=== PATIENT | female | born 1965 | race American Indian/Alaskan Native ===

== ENCOUNTER 2021-06-13 16:58 | Observation (INO) | payer MEDICARE ==
--- NOTE | 2021-06-13 17:45 | Emergency Department Report ---
Blank Doc - Documentation Documentation: Patient is 55 years old female with history of chronic anemia. Patient was sent from Dr Stahl, for evaluation of anemia. Unable to send a lab stating that patient hemoglobin is 4.5. I order CBC, CMP, PT and PTT and type and screen.
[2021-06-13 18:27] LABS: Basophils # (Auto) 0.1 K/mm3 (0.0-0.1); Basophils % (Auto) 1.2 % (0.0-1.8); Eosinophils % (Auto) 0.4 % (0.0-4.3); Lymphocytes # (Auto) 2.9 K/mm3 (1.2-5.4); Lymphocytes % (Auto) 35.8 % (13.4-35.0); Mean Corpuscular HGB Conc 29 % (30-34); Monocytes # (Auto) 0.5 K/mm3 (0.0-0.8); Monocytes % (Auto) 6.6 % (0.0-7.3); Platelet Count 301 K/mm3 (140-440); Red Blood Count 2.72 M/mm3 (3.65-5.03)
[2021-06-13 18:30] LABS: Mean Corpuscular Volume 56 fl (79-97)
[2021-06-13 18:32] LABS: Hematocrit 15.2 % (30.3-42.9); Hemoglobin 4.4 gm/dl (10.1-14.3)
[2021-06-13 18:37] LABS: Albumin 4.3 g/dL (3.9-5); BUN/Creatinine Ratio 17; Blood Urea Nitrogen 15 mg/dL (7-17); Hemolysis Index 0
[2021-06-13 18:39] LABS: Alanine Aminotransferase < 5 units/L (7-56); INR 0.95 (0.87-1.13)
[2021-06-13 18:40] LABS: Partial Thromboplastin Time 24.5 Sec. (24.2-36.6)
[2021-06-13] MEDS ORDERED: SODIUM CHLORIDE 0.9% 500 ML 500 ML IV ONE (18:47)
--- NOTE | 2021-06-13 22:10 | Emergency Department Report ---
ED General Adult HPI - General Chief complaint: Medical Clearance Stated complaint: SENT BY FOR BLOOD TRANSFUSION Time Seen by Provider: 06/13/21 17:43 Source: patient Mode of arrival: Ambulatory Limitations: No Limitations - History of Present Illness Initial comments: Patient is 55 years old female with no significant past medical history except for chronic iron deficiency anemia for which she is getting iron transfusion by her primary care physician. Patient sent to the emergency room by her primary care physician for blood transfusion. Patient found to have a hemoglobin of 4.4. Patient stated that she had history of blood transfusion 2 months ago at [facility]. Patient denied any hematemesis, melena, hematochezia. She also denied any hemoptysis or hematuria. Patient is not taking any blood thinner medicine. Patient stated that she is taking ibuprofen almost like every other day for her leg cramps. Patient stated that she has been scheduled for a visit with a securities trader in the next few days. Patient today reported shortness of breath dizziness however she denied any chest pain or abdominal pain. - Related Data Allergies Allergy/AdvReac Type Severity Reaction Status Date / Time No Known Allergies Allergy Verified 06/13/21 18:44 ED Review of Systems ROS: Stated complaint: SENT BY FOR BLOOD TRANSFUSION Other details as noted in HPI Comment: All other systems reviewed and negative Constitutional: denies: chills, fever Respiratory: SOB with exertion. denies: cough Cardiovascular: palpitations. denies: chest pain Gastrointestinal: denies: abdominal pain, nausea, vomiting, diarrhea, co nstipation, hematemesis, melena, hematochezia Musculoskeletal: denies: back pain Neurological: denies: headache, weakness, numbness, paresthesias, confusion ED Past Medical Hx - Past Medical History Previous Medical History?: No - Surgical History Past Surgical History?: No - Social History Smoking Status: Current Every Day Smoker ED Physical Exam - General Limitations: No Limitations General appearance: alert, in no apparent distress - Head Head exam: Present: atraumatic, normocephalic, normal inspection - Eye Eye exam: Present: other (Pale conjunctive) - ENT ENT exam: Present: normal exam, normal orophraynx, mucous membranes moist - Neck Neck exam: Present: normal inspection, full ROM. Absent: tenderness, meningismus - Respiratory Respiratory exam: Present: normal lung sounds bilaterally. Absent: respiratory distress, wheezes, rales, rhonchi, chest wall tenderness, accessory muscle use, decreased breath sounds, prolonged expiratory - Cardiovascular Cardiovascular Exam: Present: regular rate, normal rhythm, normal heart sounds - GI/Abdominal GI/Abdominal exam: Present: soft, normal bowel sounds. Absent: distended, tenderness, guarding, rebound, rigid, organomegaly, mass, bruit, pulsatile mass, hernia - Extremities Exam Extremities exam: Present: normal inspection, full ROM, normal capillary refill. Absent: tenderness, pedal edema, calf tenderness - Back Exam Back exam: Present: normal inspection, full ROM. Absent: CVA tenderness (R), CVA tenderness (L) - Neurological Exam Neurological exam: Present: alert, oriented X3, CN II-XII intact, normal gait, reflexes normal. Absent: motor sensory deficit - Psychiatric Psychiatric exam: Present: normal mood - Skin Skin exam: Present: warm, intact, normal color ED Course Vital Signs 06/13/21 06/13/21 18:35 21:59 Temperature 98.3 F Pulse Rate 94 H Respiratory 18 Rate Blood Pressure 121/73 O2 Sat by Pulse 100 97 Oximetry ED Medical Decision Making - Lab Data Result diagrams: 06/13/21 17:57 06/13/21 17:57 - Medical Decision Making Patient is 55 years old female with no significant past medical history except for chronic iron deficiency anemia for which she is getting iron transfusion by her primary care physician. Patient sent to the emergency room by her primary care physician for blood transfusion. Patient found to have a hemoglobin of 4.4. Patient stated that she had history of blood transfusion 2 months ago at [facility]. Patient denied any hematemesis, melena, hematochezia. She also denied any hemoptysis or hematuria. Patient is not taking any blood thinner medicine. Patient stated that she is taking ibuprofen almost like every other day for her leg cramps. Patient stated that she has been scheduled for a visit with a securities trader in the next few days. Patient today reported shortness of breath dizziness however she denied any chest pain or abdominal pain. Vital signs stable. Labs reviewed and showed a hemoglobin of 4.4. 3 units of PRBC ordered. I discussed the patient with Dr. Cardoza, he agreed to admit the patient to medical service for further management. Critical Care Time: Yes Critical care time in (mins) excluding proc time.: 30 Critical care attestation.: If time is entered above; I have spent that time in minutes in the direct care of this critically ill patient, excluding procedure time. ED Disposition Clinical Impression: Symptomatic anemia Disposition: 09 ADMITTED INPATIENT Is pt being admited?: Yes Condition: Stable
[2021-06-13] MEDS ORDERED: SODIUM CHLORIDE 0.9% 500 ML 500 ML ONE (23:12)
[2021-06-13] MEDS ORDERED: MORPHINE 2 MG/1 ML INJ IV PRN (23:33)
[2021-06-13] MEDS ORDERED: ACETAMINOPHEN 325 MG TAB PO PRN (23:33)
[2021-06-13] MEDS ORDERED: ONDANSETRON 4 MG/2 ML INJ IV PRN (23:33)
[2021-06-13] MEDS ORDERED: MORPHINE 4 MG/1 ML INJ IV PRN (23:33)
--- NOTE | 2021-06-13 23:44 | History and Physical Report ---
History of Present Illness Date of examination: 06/13/21 Date of admission: 06/13/2021 Chief complaint: Abnormal labs History of present illness: 55-year-old -Polish female with no significant past medical history except for chronic iron deficiency anemia for which she gets iron infusion through her primary care physician. Patient had a blood tests at her primary care physician's office recently I was called today to report to the emergency room for possible blood transfusion as her hemoglobin was low. Patient is said to have had a hemoglobin of 4.4. She states that she had blood transfusion about 2 months ago at [facility]. Patient denies any bloody stool, no hematemesis, denies any vaginal bleeding, denies any history of peptic ulcer, denies any headache, no chest pain. She has however had occasional shortness of breath and dizziness. Patient admits that she uses ibuprofen occasionally for pain but has not noticed any black stools. She was supposed to have a colonoscopy sometime in March but she postponed the appointment because her brother whom she lives with had COVID-19 patient denies any fever or chills, denies any recent travel or sick contacts. She has not been vaccinated against COVID-19. Work-up in the emergency room today, hemoglobin was 4.4 and hematocrit 15.2. Sodium of 135 and potassium of 3.1. Patient is being prepared for blood transfusion. Past History Past Medical History: anemia (Has been on iron infusions from primary care physician) Past Surgical History: No surgical history Social history: smoking (Current daily smoker) Family history: no significant family history Medications and Allergies Allergies Allergy/AdvReac Type Severity Reaction Status Date / Time No Known Allergies Allergy Verified 06/13/21 18:44 Active Meds: Active Medications Acetaminophen (Acetaminophen 325 Mg Tab) 650 mg PO Q4H PRN PRN Reason: Pain MILD(1-3)/Fever >100.5/ELLIS Morphine Sulfate (Morphine 2 Mg/1 Ml Inj) 2 mg IV Q4H PRN PRN Reason: Pain, Moderate (4-6) Morphine Sulfate (Morphine 4 Mg/1 Ml Inj) 4 mg IV Q4H PRN PRN Reason: Pain , Severe (7-10) Ondansetron HCl (Ondansetron 4 Mg/2 Ml Inj) 4 mg IV Q8H PRN PRN Reason: Nausea And Vomiting Sodium Chloride (Sodium Chloride 0.9% 10 Ml Flush Syringe) 10 ml IV BID DERRICK Sodium Chloride (Sodium Chloride 0.9% 10 Ml Flush Syringe) 10 ml IV PRN PRN PRN Reason: LINE FLUSH Review of Systems Constitutional: fatigue, no fever, no chills Ears, nose, mouth and throat: no nasal congestion, no sore throat Cardiovascular: lightheadedness (Occasionally), no chest pain, no palpitations Respiratory: shortness of breath (Occasionally), no cough Gastrointestinal: no abdominal pain, no nausea, no vomiting, no diarrhea, no constipation Genitourinary Female: no pelvic pain, no flank pain, no dysuria, no hematuria Menstruation: no period heavy, no period spotting Musculoskeletal: no neck pain, no low back pain Integumentary: no rash, no pruritis Neurological: no headaches, no confusion Endocrine: no polyphagia, no polydipsia, no polyuria, no nocturia Exam - Constitutional Vitals: Temp Pulse Resp BP Pulse Ox 98.3 F 94 H 18 121/73 97 06/13/21 18:35 06/13/21 18:35 06/13/21 18:35 06/13/21 18:35 06/13/21 21:59 General appearance: Present: no acute distress, well-nourished, other (Moderate pallor) - EENT Eyes: Present: PERRL, EOM intact. Absent: scleral icterus ENT: hearing intact, clear oral mucosa - Neck Neck: Present: normal ROM - Respiratory Respiratory effort: normal Respiratory: bilateral: CTA - Cardiovascular Rhythm: regular Heart Sounds: Present: S1 & S2. Absent: gallop, systolic murmur, diastolic murmur, rub, click - Extremities Extremities: no ischemia, pulses intact, pulses symmetrical, No edema, normal temperature, normal color, Full ROM Peripheral Pulses: within normal limits - Abdominal General gastrointestinal: Present: soft, non-tender, non-distended, normal bowel sounds. Absent: mass - Integumentary Integumentary: Present: clear, warm, dry, normal turgor. Absent: rash - Musculoskeletal Musculoskeletal: strength equal bilaterally - Psychiatric Psychiatric: appropriate mood/affect, intact judgment & insight, memory intact, cooperative - Neurologic Neurologic: CNII-XII intact, no focal deficits, moves all extremities Results - Labs CBC & Chem 7: 06/13/21 17:57 06/13/21 17:57 Labs: Abnormal lab results 06/13/21 06/13/21 06/13/21 Range/Units 17:57 17:57 17:57 RBC 2.72 L (3.65-5.03) M/mm3 Hgb 4.4 L* (10.1-14.3) gm/dl Hct 15.2 L* (30.3-42.9) % MCV 56 L (79-97) fl MCH 16 L (28-32) pg MCHC 29 L (30-34) % RDW 19.0 H (13.2-15.2) % Lymph % (Auto) 35.8 H (13.4-35.0) % Sodium 135 L (137-145) mmol/L Potassium 3.1 L (3.6-5.0) mmol/L Glucose 103 H (65-100) mg/dL ALT < 5 L (7-56) units/L Crossmatch See Detail Assessment and Plan - Patient Problems (1) Symptomatic anemia Current Visit: Yes Status: Acute Plan to address problem: Patient has been prepared for blood transfusion. We will monitor CBC. Patient has known history of iron deficiency anemia. We will place consult to hematology for recommendations. (2) Hypokalemia Current Visit: Yes Status: Acute Plan to address problem: We will replete potassium and monitor chemistry. (3) DVT prophylaxis Current Visit: Yes Status: Acute Plan to address problem: Patient placed on sequential compression device. (4) Full code status Current Visit: Yes Status: Acute Plan to address problem: Patient is full code.
[2021-06-14] MEDS ORDERED: POTASSIUM CHLORIDE 10 MEQ 10 MEQ/100 ML BAG IV ONE (05:18)
--- NOTE | 2021-06-14 08:15 | Hem/Onc Consultation ---
History of Present Illness - History of Present Illness heme consult prelim cpt 40057 dx: anemia 55yo AA woman with chronic iron defic anemia, on outpt IV iron infusions last RBC transfusion about 2 months ago [facility], per notes eval for severe anemia Hgb 4.4 GI eval underway but hasnt had colonscopy no ovet bleeding, no rectal bleeding data reviewed below IMP: severe microcytic anemia, well tolerated presumed severe iron defic could be chronic bleeding , hemolysis, or iron malabsorption REC: RBC transfusion planned heath eval to follow GI eval underway later labs to include Hgb electronphoresis, LDH, melecio, PNH screen, SPEP anticipate televisit heme f/u after discharge Laboratory Last Values WBC 8.2 K/mm3 (4.5-11.0) 06/13/21 17:57 Hgb 4.4 gm/dl (10.1-14.3) L* 06/13/21 17:57 Hct 15.2 % (30.3-42.9) L* 06/13/21 17:57 MCV 56 fl (79-97) L 06/13/21 17:57 Plt Count 301 K/mm3 (140-440) 06/13/21 17:57 PT 13.2 Sec. (12.2-14.9) 06/13/21 17:57 INR 0.95 (0.87-1.13) 06/13/21 17:57 APTT 24.5 Sec. (24.2-36.6) 06/13/21 17:57 Creatinine 0.9 mg/dL (0.6-1.2) 06/13/21 17:57 AST 11 units/L (5-40) 06/13/21 17:57 ALT < 5 units/L (7-56) L 06/13/21 17:57 Alkaline Phosphatase 73 units/L (35-129) 06/13/21 17:57 Total Protein 8.0 g/dL (6.3-8.2) 06/13/21 17:57 Albumin 4.3 g/dL (3.9-5) 06/13/21 17:57 Albumin/Globulin Ratio 1.2 % 06/13/21 17:57 Blood Type O NEGATIVE 06/13/21 17:57 Antibody Screen Negative 06/13/21 17:57 Crossmatch See Detail 06/13/21 17:57 Past History Past Medical History: anemia (Has been on iron infusions from primary care physician) Past Surgical History: No surgical history Social history: smoking (Current daily smoker) Family history: no significant family history Medications and Allergies Allergies Allergy/AdvReac Type Severity Reaction Status Date / Time No Known Allergies Allergy Verified 06/13/21 18:44 Active Meds: Active Medications Acetaminophen (Acetaminophen 325 Mg Tab) 650 mg PO Q4H PRN PRN Reason: Pain MILD(1-3)/Fever >100.5/ELLIS Morphine Sulfate (Morphine 2 Mg/1 Ml Inj) 2 mg IV Q4H PRN PRN Reason: Pain, Moderate (4-6) Morphine Sulfate (Morphine 4 Mg/1 Ml Inj) 4 mg IV Q4H PRN PRN Reason: Pain , Severe (7-10) Ondansetron HCl (Ondansetron 4 Mg/2 Ml Inj) 4 mg IV Q8H PRN PRN Reason: Nausea And Vomiting Sodium Chloride (Sodium Chloride 0.9% 10 Ml Flush Syringe) 10 ml IV BID DERRICK Sodium Chloride (Sodium Chloride 0.9% 10 Ml Flush Syringe) 10 ml IV PRN PRN PRN Reason: LINE FLUSH Exam - Constitutional Vitals: Last Vital Signs Temp 97.9 F 06/14/21 06:00 Pulse 68 06/14/21 06:30 Resp 15 06/14/21 06:30 BP 127/82 06/14/21 06:30 Pulse Ox 100 06/14/21 06:30 Results - Labs lab Results: Laboratory Results - last 24 hr 06/13/21 06/13/21 06/13/21 17:57 17:57 17:57 WBC 8.2 RBC 2.72 L Hgb 4.4 L* Hct 15.2 L* MCV 56 L MCH 16 L MCHC 29 L RDW 19.0 H Plt Count 301 Lymph % (Auto) 35.8 H [place] % (Auto) 6.6 Eos % (Auto) 0.4 Baso % (Auto) 1.2 Lymph # (Auto) 2.9 [place] # (Auto) 0.5 Eos # (Auto) 0.0 Baso # (Auto) 0.1 Seg Neutrophils % 56.0 Seg Neutrophils # 4.6 PT 13.2 INR 0.95 APTT 24.5 Sodium 135 L Potassium 3.1 L Chloride 98.9 Carbon Dioxide 27 Anion Gap 12 BUN 15 Creatinine 0.9 Estimated GFR > 60 BUN/Creatinine Ratio 17 Glucose 103 H Calcium 9.0 Total Bilirubin 0.20 AST 11 ALT < 5 L Alkaline Phosphatase 73 Total Protein 8.0 Albumin 4.3 Albumin/Globulin Ratio 1.2 Blood Type Antibody Screen Crossmatch 06/13/21 17:57 WBC RBC Hgb Hct MCV MCH MCHC RDW Plt Count Lymph % (Auto) [place] % (Auto) Eos % (Auto) Baso % (Auto) Lymph # (Auto) [place] # (Auto) Eos # (Auto) Baso # (Auto) Seg Neutrophils % Seg Neutrophils # PT INR APTT Sodium Potassium Chloride Carbon Dioxide Anion Gap BUN Creatinine Estimated GFR BUN/Creatinine Ratio Glucose Calcium Total Bilirubin AST ALT Alkaline Phosphatase Total Protein Albumin Albumin/Globulin Ratio Blood Type O NEGATIVE Antibody Screen Negative Crossmatch See Detail
--- NOTE | 2021-06-14 11:41 | Discharge Summary ---
Providers - Providers Date of Admission: 06/13/21 22:12 Date of discharge: 06/14/21 Attending physician: ALLISON WOMACK 06/13/21 23:33 Consult to Physician [CONS] Routine Comment: Consulting Provider: DELICIA LLOYD Physician Instructions: Reason For Exam: Anemia- Iron deficiency Primary care physician: HI BARRON Hospitalization Condition: Good Hospital course: 55-year-old female presents with history of iron deficiency anemia. Extensive work-up in the past. Patient presented from primary care physician office with low H&H symptomatic anemia. Patient did not have any active bleeding no hematemesis no peptic ulcer disease no NSAID use. Has been worked up in the past and diagnosed with iron deficiency anemia. Patient currently has symptoms of symptomatic anemia presents here for transfusion. Patient status post transfusion are stable will discharge outpatient oncology. Patient has had multiple transfusions in the past. Was actually transfused iron on a regular basis with liner reroll tender. Disposition: HOME / SELF CARE / HOMELESS Final Discharge Diagnosis (Prints w/discharge instructions): Symptomatic anemia. - Discharge Diagnoses (1) Hypokalemia Status: Acute (2) Symptomatic anemia Status: Acute Core Measure Documentation - Palliative Care Palliative Care/ Comfort Measures: Not Applicable - Core Measures Any of the following diagnoses?: none Exam - Constitutional Vitals: Temp Pulse Resp BP Pulse Ox 97.9 F 68 15 127/82 100 06/14/21 06:00 06/14/21 06:30 06/14/21 06:30 06/14/21 06:30 06/14/21 06:30 General appearance: Present: no acute distress, well-nourished - EENT Eyes: Present: PERRL ENT: hearing intact, clear oral mucosa - Neck Neck: Present: supple, normal ROM - Respiratory Respiratory effort: normal Respiratory: bilateral: CTA - Cardiovascular Heart Sounds: Present: S1 & S2. Absent: rub, click - Extremities Extremities: pulses symmetrical, No edema Peripheral Pulses: within normal limits - Abdominal General gastrointestinal: Present: soft, non-tender, non-distended, normal bowel sounds Female genitourinary: Present: normal - Integumentary Integumentary: Present: clear, warm, dry - Musculoskeletal Musculoskeletal: gait normal, strength equal bilaterally - Psychiatric Psychiatric: appropriate mood/affect, intact judgment & insight - Neurologic Neurologic: CNII-XII intact, moves all extremities Plan Activity: no restrictions Weight Bearing Status: Full Weight Bearing Diet: regular Follow up with: HI BARRON DO [Primary Care Provider] - 7 Days
[2021-06-14 12:41] VITALS: BP 134/80
[2021-06-14 13:31] LABS: Hematocrit 25.7 % (30.3-42.9); Hemoglobin 8.2 gm/dl (10.1-14.3); Mean Corpuscular HGB Conc 32 % (30-34); Platelet Count 253 K/mm3 (140-440); Red Blood Count 3.75 M/mm3 (3.65-5.03)
[2021-06-14 14:05] LABS: Mean Corpuscular Volume 69 fl (79-97); Red Cell Distribution Width 31.6 % (13.2-15.2)
== END 2021-06-14 16:16 | disposition home or self-care (01) ==
LOC: ED 16:58 → 4A 22:12
PROVIDERS: ADMIT Internal Medicine Geriatric Medicine; ATTEND Internal Medicine
DX: D64.9 Anemia, unspecified (principal); E87.6 Hypokalemia; F17.210 Nicotine dependence, cigarettes, uncomplicated
CPT/HCPCS: 36415; 36430; 80053; 85025; 85027; 85610; 85730; 86850; 86900; 86901; 86920; 96365; 99291; G0378; J3480; J7040; P9016